=== PATIENT | female | born 1995 | race Caucasian/White ===

== ENCOUNTER 2018-10-20 02:14 | Emergency (ER) | payer MEDICAID ==
[~2018-10-20] VITALS: Ht 172.7 cm; Wt 83.0 kg
[2018-10-20] MEDS ORDERED: TRAMADOL 50MG TABLET PO ONE (03:30)
[2018-10-20] MEDS ORDERED: CLINDAMYCIN HCL 150MG CAPSULE PO ONE (03:30)
[2018-10-20] MEDS ORDERED: CLINDAMYCIN HCL 150MG CAPSULE PO STA (03:30)
[2018-10-20 04:06] VITALS: BP 110/66
== END 2018-10-20 06:02 | disposition home or self-care (01) ==
LOC: ER 02:14
DX: N61.1 Abscess of the breast and nipple (principal); Z88.1 Allergy status to other antibiotic agents
CPT/HCPCS: 99283; Z7610

== ENCOUNTER 2018-10-23 01:58 | Emergency (ER) | payer MEDICAID ==
[~2018-10-23] VITALS: Ht 172.7 cm; Wt 83.0 kg
[2018-10-23 02:07] VITALS: BP 121/75
== END 2018-10-23 04:50 | disposition left against medical advice (07) ==
LOC: ER 01:58
DX: Z53.21 Procedure and treatment not carried out due to patient leaving prior to being seen by health care provider (principal)

== ENCOUNTER 2018-11-24 06:28 | Emergency (ER) | payer MEDICAID ==
[~2018-11-24] VITALS: Ht 172.7 cm; Wt 82.0 kg
[2018-11-24] MEDS ORDERED: HYDROCODONE/ACETAMINOPHEN 5/325MG TABLET PO ONE (09:15)
[2018-11-24] MEDS ORDERED: ONDANSETRON 4MG ODT PO ONE (09:15)
[2018-11-24 10:41] VITALS: BP 101/56
== END 2018-11-24 11:15 | disposition home or self-care (01) ==
LOC: ER 06:28
DX: N61.1 Abscess of the breast and nipple (principal); Z88.1 Allergy status to other antibiotic agents
CPT/HCPCS: 76642; 81025; 99284; Q0162